=== PATIENT | female | born 1965 | race Caucasian/White ===

== ENCOUNTER 2018-10-01 16:49 | Emergency (ER) | payer MEDICAID ==
[~2018-10-01] VITALS: Ht 162.6 cm; Wt 77.3 kg
[2018-10-01 17:00] VITALS: BP 143/94
== END 2018-10-01 17:42 | disposition home or self-care (01) ==
LOC: ER 16:50
DX: S01.512A Laceration without foreign body of oral cavity, initial encounter (principal); W45.8XXA Other foreign body or object entering through skin, initial encounter; Y93.89 Activity, other specified; Y92.89 Other specified places as the place of occurrence of the external cause; Y99.8 Other external cause status
CPT/HCPCS: 99281

== ENCOUNTER 2019-02-05 13:55 | Emergency (ER) | payer MEDICAID ==
[~2019-02-05] VITALS: Ht 162.6 cm; Wt 68.0 kg
[2019-02-05 13:56] VITALS: BP 121/96
== END 2019-02-05 15:45 | disposition home or self-care (01) ==
LOC: ER 13:55
DX: S61.431A Puncture wound without foreign body of right hand, initial encounter (principal); L84 Corns and callosities; X58.XXXA Exposure to other specified factors, initial encounter; Y93.89 Activity, other specified; Y92.89 Other specified places as the place of occurrence of the external cause; Y99.8 Other external cause status
CPT/HCPCS: 73130; 99283

== ENCOUNTER 2019-07-04 16:10 | Emergency (ER) | payer MEDICAID ==
[~2019-07-04] VITALS: Ht 162.6 cm; Wt 69.2 kg
[2019-07-04 16:53] LABS: BASOPHILS # (AUTO) 0.1 X10'3 (0-0.2); EOSINOPHILS % (AUTO) 0 % (0-6); HEMOGLOBIN 17.8 g/dl (12.0-16.0); MEAN CORPUSCULAR VOLUME 94.7 FL (78-98); MEAN PLATELET VOLUME 11.1 FL (7.4-10.4)
[2019-07-04 16:55] LABS: BASOPHILS % (AUTO) 0.4 % (0-1); LYMPHOCYTES # (AUTO) 1.5 X10'3 (1.1-4.8); LYMPHOCYTES % (AUTO) 10.9 % (21-51); MEAN CORPUSCULAR HEMOGLOBIN 32.4 PG (27.0-31.0); MEAN CORPUSCULAR HGB CONC 34.2 g/dL (33.0-36.5); MONOCYTES # (AUTO) 1.1 X10'3 (0-0.9); MONOCYTES % (AUTO) 7.9 % (2-12); NEUTROPHILS # (AUTO) 10.8 X10'3 (1.8-7.7); NEUTROPHILS % (AUTO) 80.8 % (42-75); PLATELET COUNT 147 X10'3 (140-440); RED BLOOD COUNT 5.49 X10'6 (4.20-5.60); RED CELL DISTRIBUTION WIDTH 13.1 % (11.5-14.5); WHITE BLOOD COUNT 13.3 X10'3 (4.5-11.0)
[2019-07-04 17:04] LABS: ALANINE AMINOTRANSFERASE 35 U/L (12-78); ALBUMIN/GLOBULIN RATIO 0.7 (1.1-1.5); ALKALINE PHOSPHATASE 105 IU/L (46-116); ANION GAP 14 (8-16); ASPARTATE AMINO TRANSFERASE 37 U/L (10-37); BILIRUBIN,TOTAL 1.7 MG/DL (0.1-1.0); BLOOD UREA NITROGEN 22 MG/DL (7-18); BUN/CREATININE RATIO 18.2 (6.6-38.0); CALCIUM 8.2 MG/DL (8.5-10.1); CHLORIDE 100 MMOL/L (99-107); CREATININE 1.21 MG/DL (0.40-0.90); GLUCOSE 163 MG/DL (70-104); SODIUM 133 MMOL/L (135-145); TOTAL CARBON DIOXIDE 19.4 MMOL/L (24-32); TOTAL PROTEIN 7.3 G/DL (6.4-8.2); eGFR 47 ML/MIN
[2019-07-04 17:08] LABS: LARGE PLATELETS MODERATE; PLATELET ESTIMATE NORMAL
[2019-07-04] MEDS ORDERED: ipratropium/albuterol 3ml nebule NEB ONE (20:15)
[2019-07-04] MEDS ORDERED: predniSONE 20 mg tablet PO ONE (20:15)
[2019-07-04] MEDS ORDERED: PRED20TA PO (20:51)
[2019-07-04 21:29] VITALS: BP 128/81
== END 2019-07-04 21:30 | disposition home or self-care (01) ==
LOC: ER 16:10
DX: J20.9 Acute bronchitis, unspecified (principal); J44.9 Chronic obstructive pulmonary disease, unspecified; Z87.891 Personal history of nicotine dependence; Z79.899 Other long term (current) drug therapy
CPT/HCPCS: 36415; 71045; 80053; 84484; 85025; 93005; 94640; 99284; J7512; 94760

== ENCOUNTER 2019-10-02 10:07 | Emergency (ER) | payer MEDICAID ==
[~2019-10-02] VITALS: Ht 162.6 cm; Wt 72.7 kg
[2019-10-02 10:08] VITALS: BP 149/105
[2019-10-02] MEDS ORDERED: PRED20TA PO (10:42)
[2019-10-02] MEDS ORDERED: methylPREDNISolone sod succ 125mg/2ml vial IM ONE (10:45)
== END 2019-10-02 10:55 | disposition home or self-care (01) ==
LOC: ER 10:07
DX: L25.9 Unspecified contact dermatitis, unspecified cause (principal); J44.9 Chronic obstructive pulmonary disease, unspecified; Z87.891 Personal history of nicotine dependence; Z79.899 Other long term (current) drug therapy
CPT/HCPCS: 96372; 99283; J2930

== ENCOUNTER 2019-12-09 08:01 | Emergency (ER) | payer MEDICAID ==
[~2019-12-09] VITALS: Ht 162.6 cm; Wt 54.5 kg
[2019-12-09] MEDS ORDERED: LIDOcaine 1% 30ml preserv. free vial SQ STA (08:36)
[2019-12-09] MEDS ORDERED: CEPH-572 PO (11:14)
[2019-12-09 11:38] VITALS: BP 114/88
== END 2019-12-09 11:35 | disposition home or self-care (01) ==
LOC: ER 08:01
DX: S81.812A Laceration without foreign body, left lower leg, initial encounter (principal); J44.9 Chronic obstructive pulmonary disease, unspecified; I27.20 Pulmonary hypertension, unspecified; Z79.2 Long term (current) use of antibiotics; W45.8XXA Other foreign body or object entering through skin, initial encounter; Y93.89 Activity, other specified; Y92.89 Other specified places as the place of occurrence of the external cause; Y99.8 Other external cause status
CPT/HCPCS: 12004; 99284